=== PATIENT | male | born 1980 ===

== ENCOUNTER 2016-10-19 20:35 | Emergency (ER) | payer SELFPAY ==
[~2016-10-19] VITALS: Ht 175.3 cm; Wt 75.4 kg
[2016-10-19 21:24] VITALS: Ht 175.3 cm; Wt 75.4 kg
[2016-10-20] MEDS ORDERED: ERYTOPOI BOTH EYES (00:29)
[2016-10-20] MEDS ORDERED: LORA10TA3 PO (00:31)
[2016-10-20] MEDS ORDERED: CEPH-443 PO (00:31)
== END 2016-10-20 04:33 | disposition left against medical advice (07) ==
LOC: FTE 20:35 → E/R 10-20 04:33
DX: Z53.21 Procedure and treatment not carried out due to patient leaving prior to being seen by health care provider (principal)